=== PATIENT | female | born 1960 | race Caucasian/White ===

== ENCOUNTER 2023-10-26 15:13 | Inpatient (IN) | payer BC, SELFPAY ==
[2023-10-26] VITALS (11 sets, daily range): BP systolic 87–134; BP diastolic 55–96; BMI 31.8
[2023-10-26] MEDS: NSS 1000 IV ×3 (09:50→16:06)
[2023-10-26 10:03] LABS: % Basophils 0.4 % (0-2); % Eosinophils 0.6 % (0-6); % Immature Granulocytes 0.7 % (0-0.5); % Lymphocytes 3.9 % (20.5-51.1); % Neutrophils 88.4 % (42.2-75.2); Absolute Basophils 0.1 10^3/uL (0-0.2); Absolute Eosinophils 0.1 10^3/uL (0-0.7); Absolute Immature Granulocytes 0.1 10^3/uL (0-0.05); Absolute Lymphocytes 0.7 10^3/uL (1.2-3.4); Absolute Monocytes 1.1 10^3/uL (0.1-0.6); Absolute Neutrophils 15.8 10^3/uL (1.4-6.5); Hematocrit 37.2 % (37.0-47.0); Hemoglobin 12.5 g/dL (12.0-16.0); Mean Corp Hgb Conc. 33.6 g/dL (33.0-37.0); Mean Corpuscular Hgb 29.3 pg (27.0-31.0); Mean Corpuscular Volume 87.1 fL (81.0-99.0); Mean Platelet Volume 9.8 fL (7.4-10.4); Nucleated Red Blood Cells % 0 %; Platelet Count 276 10^3/uL (130-400); Red Blood Cell Count 4.27 10^6/uL (4.20-5.40); Red Cell Dist. Width 13.8 % (11.5-14.5); White Blood Cell Count 17.9 10^3/uL (4.8-10.8)
--- NOTE | 2023-10-26 10:03 | ED.GENMED ---
History of Present Illness
General
Chief Complaint: Fever
Source: patient
Exam Limitations: none
Time Seen by Provider: 10/26/23 09:36
Travel History
Have you had any contact with someone who has COVID-19?: No
Do you have any symptoms of coronavirus? Fever > 100 degrees, chills, cough, shortness of breath, sore throat, loss of taste or smell, muscle aches, or headache?: Yes
Symptoms:: fever
History of Present Illness
History of Present Illness:
63-year-old female otherwise quite healthy presents with 2 to 3 days of intermittent fevers chills sweats. She denies a cough. She notes occasional urinary urgency. She does have a history of UTIs. No flank pain nausea or vomiting. No abdominal
pain chest pain cough or shortness of breath. She denies a rash. No known sick contacts. She did a COVID test last night and today at the doctor's office which were negative. Her flu test this morning was also negative. She has been using
Tylenol last dose was 7 AM this morning. No other complaints at this
Past History
Past History
ED Past Medical History: None
Social History
Tobacco: Non-smoker
Living: with family
Employment: Employed
Phy Exam
Physical Exam
Physical Exam:
General: Well-appearing female nontoxic no acute respiratory distress
HEENT: Normocephalic atraumatic neck is supple
Heart: Tachycardic but regular
Lungs: Clear no wheeze or Rales
Abdomen is soft nontender nondistended no guarding rebound normal bowel sounds no costovertebral angle tenderness
Extremities: No cyanosis
Neurologic exam: Alert and oriented no meningeal signs
Course
Orders/Labs/Results
Orders:
Orders
10/26/23 09:33
EKG [Electrocardiogram (*1)] Urgent
Reason for Study: Bradycardia / Tachycardia
EKG- Treatment ONCE
10/26/23 09:42
0.9% Sodium Chloride 1000 ml [Nss] 1,000 ml IV BOLUS
10/26/23 09:52
Complete Blood Count/With Diff Urgent
Comprehensive Metabolic Panel Urgent
Urinalysis Reflex To Culture Urgent
Date Specimen was Collected: 10/26/23
Time Specimen was Collected: 09:42
Urine Microscopic Reflex Cult Urgent
Urine Culture Urgent
ELIZABETH Source: U
Specimen Description:
Date Specimen was Collected: 10/26/23
Time Specimen was Collected: 09:42
10/26/23 10:51
Lactic Acid Q4H
Comment: CANCEL 2nd LACTIC ACID IF 1st LACTIC ACID IS LESS THAN 2
Blood Culture Q30M
ELIZABETH Source: Blood/Venous
Specimen Description:
10/26/23 11:15
Blood Culture Q30M
ELIZABETH Source: Blood/Venous
Specimen Description:
10/26/23 12:41
CefTRIAXone [Rocephin] 1,000 mg IV NOW STA
NSS 1000mL Bolus over 1 hr 0.9% Sodium Chloride 1000 ml [Nss] 1,000 ml IV BOLUS
Abnormal Lab Results
10/26/23
09:52
WBC 17.9 H 10^3/uL
(4.8-10.8)
Abs Immat Gran (auto) 0.1 H 10^3/uL
(0-0.05)
Absolute Neuts (auto) 15.8 H 10^3/uL
(1.4-6.5)
Absolute Lymphs (auto) 0.7 L 10^3/uL
(1.2-3.4)
Absolute Monos (auto) 1.1 H 10^3/uL
(0.1-0.6)
Immature Gran % 0.7 H %
(0-0.5)
Neutrophils % 88.4 H %
(42.2-75.2)
Lymphocytes % 3.9 L %
(20.5-51.1)
BUN 21 H mg/dl
(7-17)
Creatinine 1.3 H mg/dL
(0.6-1.0)
Glucose 128 H mg/dl
(70-99)
Alkaline Phosphatase 161 H U/L
(38-126)
Urine Ketones Trace A
(Negative)
Ur Occult Blood Reflex 3+ A
(Negative)
Urine Bilirubin 1+ A
(Negative)
Leukocyte Esterase Rfl 2+ A
(Negative)
Urine WBC (Reflex) >100 A /HPF
(0-5)
Urine Bacteria (Reflex) Many A
(Negative)
Urine Albumin (Reflex) 3+ A
(Neg - Trace)
10/26/23 09:52
10/26/23 09:52
Vital Signs
Initial and Last Documented VS:
Initial Vital Signs
Temp Pulse Resp BP Pulse Ox
97.9 F 132 20 134/96 100
10/26/23 09:26 10/26/23 09:26 10/26/23 09:26 10/26/23 09:26 10/26/23 09:26
Last Documented Vital Signs
Temp Pulse Resp BP Pulse Ox
97.9 F 98 23 108/74 99
10/26/23 09:26 10/26/23 12:15 10/26/23 12:15 10/26/23 12:00 10/26/23 12:15
MDM/Problems Addressed
Differential Diagnosis Includes:
Fever with chills. Differential could include viral illness versus UTI. Recent COVID and flu test were negative. Will check labs urinalysis pending fluids ordered currently afebrile
*Critical Care Note
Total Time (30-74mins, 75-104mins- exclusive of procedures): Not Applicable
Update Note
Update Note:
Patient still tachycardic despite a liter of fluid. White blood cell count is elevated at 17.9. She has acute kidney injury with a creatinine 1.3. UA with greater than 100 white blood cells per high-power field and many bacteria. Suspect UTI.
Will admit to hospital for further evaluation. Second liter of fluid ordered and Rocephin ordered as well
ED Attending Note
-
Portions of this chart may have been created with voice recognition software.� Occasional wrong word or��sound alike� substitutions may have occurred due to the inherent limitations of voice recognition software.
Discharge Plan
Departure
Patient Disposition: Admit
Date of Disposition: 10/26/23
Time of Disposition: 12:43
Admit to: Telemetry
Presentation/result/management discussed w/ accepting MD/DO: Hospitalist
Discharge Problem:
UTI (urinary tract infection)
Referrals:
Teodora Contrears CRNP [Family Provider] -
Interventions
Interventions:
*Risk Screen - Suicide Last Done: 10/26/23 09:50
*General Assessment Last Done: 10/26/23 09:50
*Neglect/Abuse Screening Last Done: 10/26/23 09:50
*ED COVID-19 Vaccine History Last Done: 10/26/23 09:26
ED- Neurological Assessment Last Done: 10/26/23 09:54
ED-Skin Assessment Last Done: 10/26/23 09:54
[2023-10-26 10:17] LABS: ALT (SGPT) 20 U/L (0-35); AST (SGOT) 25 U/L (14-36); Albumin 3.7 g/dl (3.5-5.0); Alkaline Phosphatase 161 U/L (38-126); Blood Urea Nitrogen 21 mg/dl (7-17); Calcium 9.4 mg/dl (8.4-10.2); Carbon Dioxide 23 mmol/L (22-30); Chloride 104 mmol/L (98-107); Glucose 128 mg/dl (70-99); Potassium 3.9 mmol/L (3.5-5.1); Sodium 135 mmol/L (135-145); Total Bilirubin 0.8 mg/dl (0.2-1.3); Total Protein 7.4 g/dl (6.3-8.2); eGFR 46.21
[2023-10-26 10:22] LABS: Urine Albumin 3+ (Neg - Trace); Urine Bilirubin 1+ (Negative); Urine Character Clear (Clear); Urine Color Yellow; Urine Glucose Negative (Negative); Urine Ketone Trace (Negative); Urine Leukocyte 2+ (Negative); Urine Nitrite Negative (Negative); Urine Occult Blood 3+ (Negative); Urine Urobilinogen Negative (Neg - 1+)
[2023-10-26 10:48] LABS: Urine Urothelial Cell >30 /LPF (FEW)
[2023-10-26 10:49] LABS: Urine Squamous Cell >30 /LPF (Few); Urine White Cell >100 /HPF (0-5)
[2023-10-26 10:50] LABS: Urine Bacteria Many (Negative)
[2023-10-26 11:13] LABS: Lactic Acid 0.9 mmol/L (0.7-2.0)
[2023-10-26] MEDS: ROCEPHIN 1000 MG IV (12:59)
[2023-10-26] MEDS: TYLENOL 1000 MG PO (13:07)
--- NOTE | 2023-10-26 15:06 | HPS.HSE ---
Family Physician
-
Family Physician: JUSTYNA Meraz
Chief Complaint
-
UTI symptoms
History of Present Illness
63 y/o F, no significant prior PMH, presents to ER with fever/chills, urine hesitancy, lower abdominal pressure x 3 days. She reports prior hx of UTIs. She reports a recent trip where she was in a hot-tub and feels this may have lead to her
symptoms. No associated flank pain, nausea/vomiting. No abd pain, no cp or sob. No sick contacts. She tested herself for COVID/Flu at home negative.
Initial workup shows RAVIN, UTI and sepsis, patient admitted.
Medical History
Past Medical History
Past Medical History: Reports None
Past Surgical History: Reports Orthopedic
Social History
Tobacco: Non-smoker
Alcohol: Occasional
Drug: None
Personal:
Living: With Family
Employment: Retired
Family History
Family History: Not pertinent
Allergies / Home Medications
Allergies reflects when Allergies were last updated in [facility].
Home Medications with original date entered in [facility]
Allergy/Medication List:
Allergies
Allergy/AdvReac Type Severity Reaction Status Date / Time
No Known Allergies Allergy Verified 10/26/23 09:33
Home Medications
acetaminophen 500 mg tablet (Tylenol Extra Strength) 1,000 mg PO Q4HPRN PRN mild pain 10/26/23
cholecalciferol (vitamin D3) 1 tab PO DAILY Supplement 10/26/23
therapeutic multivitamin 1 tab PO DAILY Supplement 10/26/23
Review of Systems
-
A 12 point ROS was completed and negative except as noted: Yes
Physical Exam
Vital Signs
Vital Signs
Temp Pulse Resp BP Pulse Ox
99.5 F 133 24 124/69 100
10/26/23 13:03 10/26/23 14:45 02/02/24 14:45 10/26/23 14:00 10/26/23 12:30
Physical Exam
General: No Apparent Distress
HEENT: NormoCephalic and Anicteric
Respiratory: Clear; No Wheezes or Rales
Cardiac: S1/S2, Regular Rhythm and Tachycardia
GI: Soft and Non Tender
Genito-urinary: No costovertebral tender
Neuro: AO x 3
Hematologic/Lymphatic: No Lymphadenopathy
Psych: Calm
Laboratory Results
-
10/26/23 09:52
10/26/23 09:52
Laboratory Results
Lactic Acid Cancelled 10/26/23 14:45
Total Bilirubin 0.8 mg/dl (0.2-1.3) 10/26/23 09:52
AST 25 U/L (14-36) 10/26/23 09:52
ALT 20 U/L (0-35) 10/26/23 09:52
Alkaline Phosphatase 161 U/L (38-126) H 10/26/23 09:52
Data Reviewed
-
Lab Data: Labs Reviewed by me, Discussed with Patient and Discussed with Family
Impression/Plan
-
Assessment:
Sepsis POA (leukocytosis, tachycardia, UTI)
UTI
- start aggressive sepsis protocol IVF
- start IV Zosyn, follow cultures
- prn Tylenol
RAVIN
- likely pre-renal from sepsis
- continue aggressive IVF
- monitor for signs of infection
DVT ppx: SC Heparin
Code: Full
--- NOTE | 2023-10-26 15:54 | ED TECH ---
Pt was ambulatory from stretcher to bed, pt arrived to unit on r.a and telemetry. call veronica in reach.
[2023-10-26] MEDS: ZOSYN 50 IV ×2 (16:06→21:05)
--- NOTE | 2023-10-26 18:31 | PTCARENOTE ---
Pt admitted from ED at aprox 1545 today. Pt able to walk unassisted into room. Assessment and admission done. Pt will order dinner. Pt on tele, ST 120's. BP stable. Instructed pt to ring for assistance.
[2023-10-26] MEDS: HEPARIN 5000 UNITS SC (20:14)
[2023-10-26] MEDS: TYLENOL 650 MG PO (20:15)
[2023-10-27] VITALS (7 sets, daily range): BP systolic 114–142; BP diastolic 70–85
[2023-10-27] MEDS: ZOSYN 50 IV ×3 (03:23→15:52)
[2023-10-27] MEDS: NSS 1000 IV (06:06)
[2023-10-27 07:30] LABS: % Basophils 0.3 % (0-2); % Eosinophils 0.9 % (0-6); % Immature Granulocytes 0.7 % (0-0.5); % Lymphocytes 7.9 % (20.5-51.1); % Monocytes 9.5 % (1.7-9.3); % Neutrophils 80.7 % (42.2-75.2); Absolute Eosinophils 0.1 10^3/uL (0-0.7); Absolute Immature Granulocytes 0.1 10^3/uL (0-0.05); Absolute Lymphocytes 0.8 10^3/uL (1.2-3.4); Absolute Monocytes 0.9 10^3/uL (0.1-0.6); Absolute Neutrophils 7.9 10^3/uL (1.4-6.5); Hematocrit 28.9 % (37.0-47.0); Mean Corp Hgb Conc. 33.2 g/dL (33.0-37.0); Mean Corpuscular Hgb 28.8 pg (27.0-31.0); Mean Corpuscular Volume 86.8 fL (81.0-99.0); Mean Platelet Volume 9.8 fL (7.4-10.4); Nucleated Red Blood Cells % 0 %; Platelet Count 226 10^3/uL (130-400); Red Blood Cell Count 3.33 10^6/uL (4.20-5.40); Red Cell Dist. Width 14.2 % (11.5-14.5); White Blood Cell Count 9.8 10^3/uL (4.8-10.8)
[2023-10-27 08:07] LABS: Blood Urea Nitrogen 18 mg/dl (7-17); Calcium 8.3 mg/dl (8.4-10.2); Carbon Dioxide 20 mmol/L (22-30); Chloride 112 mmol/L (98-107); Estimated Creatinine Clearance 49 ml/min; Glucose 108 mg/dl (70-99); Potassium 3.9 mmol/L (3.5-5.1); Sodium 137 mmol/L (135-145); eGFR 46.21
[2023-10-27 08:23] LABS: Hemoglobin 9.6 g/dL (12.0-16.0)
[2023-10-27] MEDS: HEPARIN 5000 UNITS SC ×2 (08:24→20:44)
--- NOTE | 2023-10-27 09:26 | W.PN.HOSP.TC ---
Today's Communication/Plan
-
Bicarb fluids from NSS
CT to evaluate obstruction
ID consulted
Assessment / Plan
Assessment / Plan
Assessment:
Sepsis POA (leukocytosis, tachycardia, UTI)
Gram negative bacteremia
UTI
- continue IVF - switch to LR with some mild acidosis noted from NSS
- continue empiric Zosyn day 2, follow cultures
- prn Tylenol
- ID consult
- given persistent RAVIN, will perform CT to eval obstructive etiologies
RAVIN
- likely pre-renal from sepsis
- continue IVF - switch to LR with some mild acidosis noted from NSS
DVT ppx: SC Heparin
Code: Full
Anticipated Discharge: > 48 hours
Subjective/Interval History
-
Date of Service: October 27, 2023
feels better, no flank pain
no fevers
+ bacteremia
Objective Data
-
Labs:
Laboratory Results
10/27/23
06:59
WBC 9.8
Hgb 9.6 L D
Hct 28.9 L
Plt Count 226
Sodium 137
Potassium 3.9
Chloride 112 H
Carbon Dioxide 20 L
BUN 18 H
Creatinine 1.3 H
Glucose 108 H
Calcium 8.3 L
Vital Signs:
Vital Signs
Temp Pulse Resp BP Pulse Ox
98.3 F 103 16 122/76 100
10/27/23 07:55 10/27/23 07:55 10/27/23 07:55 10/27/23 07:55 10/27/23 07:55
I&O
10/26/23 10/27/23 10/28/23
06:59 06:59 06:59
Intake Total 1405 / 1405
Balance 1405 / 1405
Physical Exam
-
General: No Apparent Distress
HEENT: Normocephalic and Atraumatic
Respiratory: Negative Wheezes or Rales
Cardiac: Regular Rhythm and S1/S2
GI: Soft
Genito-urinary: No Costovertebral Tender
Musculoskeletal: No Edema
Neuro: AO x 3
Hematologic / Lymphatic: No Lymphadenopathy
Psych: Calm
Data Reviewed
-
Total Time Spent with Patient (in minutes): 47
Labs: Labs Reviewed by me
[2023-10-27] MEDS: SODIUM BICARBONATE 1150 MEQ IV (11:23)
--- NOTE | 2023-10-27 14:58 | CM ---
Met with patient who is admitted for work up of UTI/sepsis. SHe lives with her SO in 2 level home. NO steps to enter. Powder room on entry tech. UP 13 steps to full bathroom with heated bench, grab bars in shower, grab bar on right of toilet. SHe
was independent prior to admit. 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
PCP Teodora Contreras
Pharmacy: [facility]
NO history of Snf or inpatient rehab.
PLAN:home no needs.
--- NOTE | 2023-10-27 16:37 | CON.ID ---
Consultation
-
Date/Time Consultation Requested: October 27, 2023 0809
Date/Time Consultation Performed: October 27, 2023 1640
Requesting Provider: Dr. Silvia Mistry
Performing Provider: Dr. Sarah Tovar
Reason for Consultation: Bacteremia, UTI
Chief Complaint / Past History
Chief Complaint
Fever and chills
History of Present Illness
63-year-old female without past medical history who presented to the hospital on October 26 complaining of several day history of weakness, fevers, shaking chills, right-sided bladder pain, urine hesitancy. No flank pain. Her white count was 17.9.
Temperature now is 100.6. Urine and blood cultures are positive for E. coli. Had 2 UTIs in the past. He has nephrolithiasis that are not obstructing. Recent travel to [facility]. She spent time in the hot tub and pool. She
does not think that the water was chlorinated. She is feeling better today. No further chills. Urinating well.
Past History
Past Medical History: None
Additional Past Medical History:
Nephrolithiasis
Additional Past Surgical History:
Bilateral THR
Allergy History:
No Known Allergies Allergy (Verified 10/26/23 09:33)
Medications Reviewed: Yes
Current Antibiotics:
Zosyn
Social History
Tobacco: Non-Smoker
Alcohol: Occasional
Drug: None
Personal:
Living: With Family
Family History
Family History: Not Pertinent
Review of Systems
Review of Systems
General: Fever, Chills and Change in Appetite
HEENT: Negative Sinus Problems, Headache or Pharyngitis
Cardiovascular: Negative Chest Pain or Dyspnea
Respiratory: Negative Dyspnea or Cough
Gasteroenterology: Other (no diarrhea); Negative Nausea or Vomiting
Genital / Urological: Negative Flank Pain
Endocrine: Weakness
Skin / Hair / Nails: Negative Rash
Neurological: Negative Headache or Dizziness
All systems: All other systems were reviewed and were negative
Vital Signs
Temp Pulse Resp BP Pulse Ox
100.6 F 123 18 137/85 98
10/27/23 15:37 10/27/23 15:37 10/27/23 15:37 10/27/23 15:37 10/27/23 15:37
Physical Exam
Physical Exam
Constitutional: Comfortable and Obese
Cardiovascular: Regular Rate and S1/S2
Pulmonary: Clear
Gastrointestinal: Soft, Non Tender, Non Distended and Normal Bowel Sounds
Genito-Urinary: Negative Maurice or CVA Tenderness
Extremities: Negative Edema
Neurological: AO x 3
Lab / Diagnostic Study Results
10/27/23 06:59
10/27/23 06:59
Abs Immat Gran (auto) 0.1 10^3/uL (0-0.05) H 10/27/23 06:59
Absolute Neuts (auto) 7.9 10^3/uL (1.4-6.5) H 10/27/23 06:59
Absolute Lymphs (auto) 0.8 10^3/uL (1.2-3.4) L 10/27/23 06:59
Absolute Monos (auto) 0.9 10^3/uL (0.1-0.6) H 10/27/23 06:59
Absolute Basos (auto) 0.0 10^3/uL (0-0.2) 10/27/23 06:59
Immature Gran % 0.7 % (0-0.5) H 10/27/23 06:59
Neutrophils % 80.7 % (42.2-75.2) H 10/27/23 06:59
Lymphocytes % 7.9 % (20.5-51.1) L 10/27/23 06:59
Monocytes % 9.5 % (1.7-9.3) H 10/27/23 06:59
Eosinophils % 0.9 % (0-6) 10/27/23 06:59
Basophils % 0.3 % (0-2) 10/27/23 06:59
Lactic Acid Cancelled 10/26/23 14:45
Ur Squamous Epith Cells >30 /LPF (Few) 10/26/23 09:52
Microbiology Results
Micro:
10/26/23 11:15 Blood Culture - Preliminary
Blood/Venous Escherichia coli
Gram Stain - Preliminary
10/26/23 10:51 Blood Culture - Preliminary
Blood/Venous Escherichia coli
Gram Stain - Final
10/26/23 09:52 Urine Culture - Preliminary
Urine Escherichia coli
10/27/23 CT a/p: Small bilateral nonobstructing renal calculi. No findings to confirm ureteral calculus or urinary tract dilatation bilaterally although the course of the distal ureters bilaterally are significantly obscured from beam hardening
artifact. Some bilateral perinephric stranding is some right periureteral stranding, nonspecific, especially without intravenous contrast. Renal infection or urinary bladder infection, latter with right ascending urinary tract infection cannot be
excluded.
Assessment / Plan
# Complicated E. Coli UTI
# E. coli Bacteremia
# Sepsis: fever, leukocytosis
- CT a/p non-obstructing calculi, + right perinephric stranding
-repeat blood cx's today
-Narrow Zosyn to ceftriaxone.
-Follow temps/wbc.
[2023-10-27] MEDS: TYLENOL 650 MG PO ×2 (16:48→22:23)
[2023-10-27] MEDS: STERILE WATER FOR INJECTION 10 ML IV (22:03)
[2023-10-27] MEDS: ROCEPHIN 1000 MG IV (22:03)
[2023-10-28] MEDS: SODIUM BICARBONATE 1150 MEQ IV (02:25)
[2023-10-28 03:28] VITALS: BP 130/77
[2023-10-28 07:29] LABS: % Basophils 0.3 % (0-2); % Eosinophils 1.2 % (0-6); % Immature Granulocytes 1.2 % (0-0.5); % Lymphocytes 9.1 % (20.5-51.1); % Monocytes 8.5 % (1.7-9.3); % Neutrophils 79.7 % (42.2-75.2); Absolute Eosinophils 0.1 10^3/uL (0-0.7); Absolute Immature Granulocytes 0.1 10^3/uL (0-0.05); Absolute Lymphocytes 1.1 10^3/uL (1.2-3.4); Absolute Neutrophils 9.6 10^3/uL (1.4-6.5); Hematocrit 30.8 % (37.0-47.0); Hemoglobin 10.2 g/dL (12.0-16.0); Mean Corp Hgb Conc. 33.1 g/dL (33.0-37.0); Mean Corpuscular Hgb 29.1 pg (27.0-31.0); Mean Platelet Volume 9.5 fL (7.4-10.4); Nucleated Red Blood Cells % 0 %; Platelet Count 293 10^3/uL (130-400); Red Cell Dist. Width 14.3 % (11.5-14.5); White Blood Cell Count 12.1 10^3/uL (4.8-10.8)
[2023-10-28 07:48] VITALS: BP 139/77
[2023-10-28] MEDS: HEPARIN 5000 UNITS SC ×2 (08:05→21:26)
[2023-10-28 08:08] LABS: Blood Urea Nitrogen 16 mg/dl (7-17); Calcium 8.4 mg/dl (8.4-10.2); Carbon Dioxide 27 mmol/L (22-30); Chloride 107 mmol/L (98-107); Estimated Creatinine Clearance 53 ml/min; Glucose 93 mg/dl (70-99); Potassium 3.6 mmol/L (3.5-5.1); Sodium 138 mmol/L (135-145); eGFR 50.86
--- NOTE | 2023-10-28 10:05 | W.PN.HOSP.TC ---
Today's Communication/Plan
-
finish current IVF bag
continue Rocephin
follow repeat BCx
Assessment / Plan
Assessment / Plan
Assessment:
Sepsis POA (leukocytosis, tachycardia, UTI)
E. Coli complicated UTI with E. Coli bacteremia
- CT showed + right perinephric stranding consistent with pyelonephritis
- finished sepsis protocol IVF
- continue Rocephin per ID, this is day 3 of Abx
- follow repeat Blood cultures
- prn Tylenol
RAVIN
- likely pre-renal from sepsis, no obstruction on CT imaging
- finish current bag IVF then cap
- repeat BMP in AM
DVT ppx: SC Heparin
Code: Full
Anticipated Discharge: Within 24 hours
Subjective/Interval History
-
Date of Service: October 28, 2023
no complaints, feels dramatically improved
Objective Data
-
Labs:
Laboratory Results
10/28/23
06:57
WBC 12.1 H
Hgb 10.2 L
Hct 30.8 L
Plt Count 293 D
Sodium 138
Potassium 3.6
Chloride 107
Carbon Dioxide 27
BUN 16
Creatinine 1.2 H
Glucose 93
Calcium 8.4
Vital Signs:
Vital Signs
Temp Pulse Resp BP Pulse Ox
98.8 F 111 18 139/77 94
10/28/23 07:48 10/28/23 07:48 10/28/23 07:48 10/28/23 07:48 10/28/23 08:00
I&O
10/27/23 10/28/23 10/29/23
06:59 06:59 06:59
Intake Total 1405 / 1405 2520 / 2520
Balance 1405 / 1405 2520 / 2520
Physical Exam
-
General: No Apparent Distress
HEENT: Normocephalic and Atraumatic
Respiratory: Negative Wheezes or Rales
Cardiac: Regular Rhythm and S1/S2
GI: Soft
Genito-urinary: No Costovertebral Tender
Musculoskeletal: No Edema
Neuro: AO x 3
Hematologic / Lymphatic: No Lymphadenopathy
Psych: Calm
Data Reviewed
-
Total Time Spent with Patient (in minutes): 45
Labs: Labs Reviewed by me
--- NOTE | 2023-10-28 10:28 | W.PN.ID1 ---
Date of Service
Date of Service: October 28, 2023
Today's Communication
Continue ceftriaxone for now.
Assessment / Plan
# Complicated E. Coli UTI
# E. coli Bacteremia
# Sepsis: fever, leukocytosis
- CT a/p non-obstructing calculi, + right perinephric stranding
-repeat blood cx's pending
-Continue ceftriaxone.
-Follow temps/wbc.
Chief Complaint
-: UTI and Bacteremia
Subjective / Review of Systems
Feels much better today.
Vital Signs / Physical Exam
Vital Signs
Vital Signs
Temp Pulse Resp BP Pulse Ox
98.8 F 111 18 139/77 94
10/28/23 07:48 10/28/23 07:48 10/28/23 07:48 10/28/23 07:48 10/28/23 08:00
Selected Entries
10/27/23
16:46
Temp 100.6 F H
Physical Exam
Constitutional: No Acute Distress and Comfortable
Pulmonary: Clear
Gastrointestinal: Soft, Non Tender and Non Distended
Genito-Urinary: Negative CVA Tenderness
Objective Data
Lab Data
Lab Results
10/28/23 06:57
10/28/23 06:57
Estimated Creat Clear 53 ml/min 10/28/23 06:57
Lactic Acid Cancelled 10/26/23 14:45
Total Bilirubin 0.8 mg/dl (0.2-1.3) 10/26/23 09:52
AST 25 U/L (14-36) 10/26/23 09:52
ALT 20 U/L (0-35) 10/26/23 09:52
Alkaline Phosphatase 161 U/L (38-126) H 10/26/23 09:52
Most recent labs reviewed.
Micro Results:
10/26/23 11:15 Blood Culture - Preliminary
Blood/Venous Escherichia coli
Gram Stain - Final
10/26/23 10:51 Blood Culture - Preliminary
Blood/Venous Escherichia coli
Gram Stain - Final
10/26/23 09:52 Urine Culture - Final
Urine Escherichia coli
10/27/23 17:58 Blood Culture - Pending
Blood/Venous
10/27/23 17:29 Blood Culture - Pending
Blood/Venous
10/27/23 CT a/p: Small bilateral nonobstructing renal calculi. No findings to confirm ureteral calculus or urinary tract dilatation bilaterally although the course of the distal ureters bilaterally are significantly obscured from beam hardening
artifact. Some bilateral perinephric stranding is some right periureteral stranding, nonspecific, especially without intravenous contrast. Renal infection or urinary bladder infection, latter with right ascending urinary tract infection cannot be
excluded.
[2023-10-28 11:50] VITALS: BP 131/76
[2023-10-28 15:32] VITALS: BP 133/84
[2023-10-28] MEDS: TYLENOL 650 MG PO ×2 (17:00→22:50)
[2023-10-28 18:34] VITALS: BP 136/86
[2023-10-28] MEDS: ROCEPHIN 1000 MG IV (21:29)
[2023-10-28] MEDS: STERILE WATER FOR INJECTION 10 ML IV (21:30)
[2023-10-28 23:50] VITALS: BP 141/90
[2023-10-29 00:19] VITALS: BP 141/90
[2023-10-29 04:15] VITALS: BP 146/95
[2023-10-29 07:21] LABS: % Basophils 0.2 % (0-2); % Eosinophils 1.6 % (0-6); % Immature Granulocytes 1.2 % (0-0.5); % Lymphocytes 12.7 % (20.5-51.1); % Monocytes 9.1 % (1.7-9.3); % Neutrophils 75.2 % (42.2-75.2); Absolute Eosinophils 0.2 10^3/uL (0-0.7); Absolute Immature Granulocytes 0.1 10^3/uL (0-0.05); Absolute Lymphocytes 1.2 10^3/uL (1.2-3.4); Absolute Monocytes 0.9 10^3/uL (0.1-0.6); Absolute Neutrophils 7.3 10^3/uL (1.4-6.5); Hematocrit 30.1 % (37.0-47.0); Hemoglobin 9.9 g/dL (12.0-16.0); Mean Corp Hgb Conc. 32.9 g/dL (33.0-37.0); Mean Corpuscular Hgb 28.9 pg (27.0-31.0); Mean Platelet Volume 9.5 fL (7.4-10.4); Nucleated Red Blood Cells % 0 %; Platelet Count 307 10^3/uL (130-400); Red Blood Cell Count 3.42 10^6/uL (4.20-5.40); Red Cell Dist. Width 14.3 % (11.5-14.5); White Blood Cell Count 9.7 10^3/uL (4.8-10.8)
[2023-10-29 07:52] LABS: Blood Urea Nitrogen 16 mg/dl (7-17); Calcium 8.5 mg/dl (8.4-10.2); Carbon Dioxide 28 mmol/L (22-30); Chloride 102 mmol/L (98-107); Estimated Creatinine Clearance 64 ml/min; Glucose 103 mg/dl (70-99); Potassium 3.5 mmol/L (3.5-5.1); Sodium 141 mmol/L (135-145); eGFR > 60.00
[2023-10-29 08:18] VITALS: BP 144/92
[2023-10-29] MEDS: HEPARIN 5000 UNITS SC (09:13)
--- NOTE | 2023-10-29 10:05 | W.PN.ID1 ---
Date of Service
Date of Service: October 29, 2023
Today's Communication
Transition ceftriaxone to Bactrim DS 1 tab po bid x 10 more days.
Assessment / Plan
# Complicated E. Coli UTI
# E. coli Bacteremia
# s/p Sepsis: fever, leukocytosis
- CT a/p non-obstructing calculi, + right perinephric stranding
-repeat blood cx's pending
-Transition ceftriaxone to Bactrim DS 1 tab po bid x 10 more days.
Chief Complaint
-: UTI and Bacteremia
Subjective / Review of Systems
Feels good today. No urinary sxs. No flank pin.
Vital Signs / Physical Exam
Vital Signs
Vital Signs
Temp Pulse Resp BP Pulse Ox
97.8 F 101 14 144/92 93
10/29/23 08:18 10/29/23 08:18 10/29/23 08:18 10/29/23 08:18 10/29/23 08:18
Physical Exam
Constitutional: No Acute Distress and Comfortable
Gastrointestinal: Soft, Non Tender and Non Distended
Genito-Urinary: Negative CVA Tenderness
Neurological: AO x 3
Objective Data
Lab Data
Lab Results
10/29/23 06:18
10/29/23 06:18
Estimated Creat Clear 64 ml/min 10/29/23 06:18
Lactic Acid Cancelled 10/26/23 14:45
Total Bilirubin 0.8 mg/dl (0.2-1.3) 10/26/23 09:52
AST 25 U/L (14-36) 10/26/23 09:52
ALT 20 U/L (0-35) 10/26/23 09:52
Alkaline Phosphatase 161 U/L (38-126) H 10/26/23 09:52
Most recent labs reviewed.
Micro Results:
10/27/23 17:29 Blood Culture - Preliminary
Blood/Venous No Growth in 24 hours- Final report to follow
10/27/23 17:58 Blood Culture - Preliminary
Blood/Venous No Growth in 24 hours- Final report to follow
10/26/23 11:15 Blood Culture - Preliminary
Blood/Venous Escherichia coli
Gram Stain - Final
10/26/23 10:51 Blood Culture - Preliminary
Blood/Venous Escherichia coli
Gram Stain - Final
10/26/23 09:52 Urine Culture - Final
Urine Escherichia coli
10/27/23 CT a/p: Small bilateral nonobstructing renal calculi. No findings to confirm ureteral calculus or urinary tract dilatation bilaterally although the course of the distal ureters bilaterally are significantly obscured from beam hardening
artifact. Some bilateral perinephric stranding is some right periureteral stranding, nonspecific, especially without intravenous contrast. Renal infection or urinary bladder infection, latter with right ascending urinary tract infection cannot be
excluded.
Care Review
Plan reviewed with: Physician (Dr. Fu.)
--- NOTE | 2023-10-29 11:42 | W.PN.HOSP.TC ---
Today's Communication/Plan
-
Discharge
Assessment / Plan
Assessment / Plan
Gen-AAOx3, NAD
HEENT-NC, AT, anicteric, clear oral mm
Neck-supple
CV-reg, no M, +S1/S2
Lungs-clear B/L
Abd-soft, NT, ND
Ext-no edema
Musculoskeletal-no cyanosis, clubbing
Skin-warm and dry
Neuro-grossly non-focal
Psych-calm, cooperative
Sepsis POA (leukocytosis, tachycardia, UTI)
E. Coli complicated UTI with E. Coli bacteremia
- CT showed + right perinephric stranding consistent with pyelonephritis
- finished sepsis protocol IVF
- continue Rocephin per ID, this is day 3 of Abx
- follow repeat Blood cultures
- prn Tylenol
RAVIN -resolved.
Acute normocytic anemia -suspect due to acute illness, hemodilution from IV fluids, etc. Should recover on its own.
Bilateral nephrolithiasis -intrarenal on CT scan, described as small and nonobstructing. Patient aware of the diagnosis, was seen by urology a couple of years ago and recommendation was to treat conservatively. Follow-up as needed as outpatient.
Obesity due to excess calories
DVT ppx: SC Heparin
Code: Full
Dispo -medically stable for discharge home today. Outpatient follow-up.
32 minutes spent in discharge process.
Anticipated Discharge: Today
Subjective/Interval History
-
Date of Service: October 29, 2023
Patient seen and examined. Feeling much better. No complaints. Eager to go home.
Objective Data
-
Labs:
Laboratory Results
10/29/23
06:18
WBC 9.7
Hgb 9.9 L
Hct 30.1 L
Plt Count 307
Sodium 141
Potassium 3.5
Chloride 102
Carbon Dioxide 28
BUN 16
Creatinine 1.0
Glucose 103 H
Calcium 8.5
Vital Signs:
Vital Signs
Temp Pulse Resp BP Pulse Ox
97.8 F 101 14 144/92 93
10/29/23 08:18 10/29/23 08:18 10/29/23 08:18 10/29/23 08:18 10/29/23 08:18
I&O
10/28/23 10/29/23 10/30/23
06:59 06:59 06:59
Intake Total 2520 / 2520 3960 / 3960
Balance 2520 / 2520 3960 / 3960
Review of Systems
-
History Source: Patient
All other systems: Reviewed and negative
--- NOTE | 2023-10-29 11:46 | W.DS.TRANS ---
DC Summary - [employer]
-
Discharge Instructions:
Discharge Diagnosis/Procedures Sepsis, UTI, pyelonephritis, anemia,
nephrolithiasis
Diet Regular
Activity As tolerated
Driving Restrictions As prior to admission
Bathing Restrictions None
Instructions:
Stand-Alone Forms:
Changes to Home Medications: No
Discharge Medications:
DC Medications w/original date entered in [facility]
cholecalciferol (vitamin D3) 1 tab PO DAILY Supplement 10/26/23
therapeutic multivitamin 1 tab PO DAILY Supplement 10/26/23
sulfamethoxazole 800 mg-trimethoprim 160 mg tablet (Bactrim DS) 1 tab PO BID #20 tabs 10/29/23
Home Medication Changes
Pending Results: No
[2023-10-29 11:58] VITALS: BP 138/86
--- NOTE | 2023-10-29 12:49 | CM ---
CM following re: d/c planning
Chart reviewed
Pt is medically stable for d/c
Pt has no skilled needs identified and insurance does not dictate IMM
PLAN; d/c home no needs
== END 2023-10-29 13:55 | disposition home or self-care (01) | DRG 872 ==
LOC: 4 EAST ACU 15:13
PROVIDERS: Physician Assistant; ADMITTING PHYSICIAN Internal Medicine; ATTENDING PHYSICIAN Hospitalist; CONSULT PHYSICIAN Internal Medicine Infectious Disease; EMERGENCY PHYSICIAN Emergency Medicine; FAMILY PHYSICIAN Nurse Practitioner
DX: A41.51 Sepsis due to Escherichia coli [E. coli] (principal); N39.0 Urinary tract infection, site not specified; N17.9 Acute kidney failure, unspecified; N20.0 Calculus of kidney; Z87.440 Personal history of urinary (tract) infections; Z87.442 Personal history of urinary calculi; Z96.643 Presence of artificial hip joint, bilateral; D64.9 Anemia, unspecified
CPT/HCPCS: 74176; 80048; 80053; 81003; 81015; 83605; 85025; 87040; 87077; 87086; 87149; 87186; 87205; 93005; 96361; 96374; 99284

== ENCOUNTER → 2024-03-19 10:29 | Outpatient (REF) | payer BC, SELFPAY | LOC: HWWDC 10:29 | PROVIDERS: ATTENDING PHYSICIAN Obstetrics & Gynecology; FAMILY PHYSICIAN Nurse Practitioner | DX: Z12.31 Encounter for screening mammogram for malignant neoplasm of breast (principal) | CPT/HCPCS: 77063; 77067 ==

== ENCOUNTER → 2024-06-25 06:25 | Day surgery (SDC) | payer BC, SELFPAY | LOC: GI 06:25 | PROVIDERS: ATTENDING PHYSICIAN Internal Medicine | DX: Z12.11 Encounter for screening for malignant neoplasm of colon (principal); D12.0 Benign neoplasm of cecum; D12.3 Benign neoplasm of transverse colon; K55.20 Angiodysplasia of colon without hemorrhage; K57.30 Diverticulosis of large intestine without perforation or abscess without bleeding; K64.8 Other hemorrhoids; K64.4 Residual hemorrhoidal skin tags; Z86.0109 Personal history of other colon polyps; Z80.0 Family history of malignant neoplasm of digestive organs | CPT/HCPCS: 45385; 45380; 88305 ==

== ENCOUNTER → 2024-12-30 11:19 | Outpatient (REF) | payer BC, SELFPAY | LOC: HWRAD 11:19 | PROVIDERS: ATTENDING PHYSICIAN Surgery; FAMILY PHYSICIAN Nurse Practitioner | DX: N20.0 Calculus of kidney (principal) | CPT/HCPCS: 76775 ==

== ENCOUNTER → 2025-03-20 10:21 | Outpatient (REF) | payer BC, SELFPAY | LOC: HWWDC 10:21 | PROVIDERS: ATTENDING PHYSICIAN Nurse Practitioner | DX: Z12.31 Encounter for screening mammogram for malignant neoplasm of breast (principal) | CPT/HCPCS: 77063; 77067 ==